=== PATIENT | female | born 1965 | race Caucasian/White ===

== ENCOUNTER 2017-05-08 09:47 | Emergency (ER) | payer OTHER ==
[2017-05-08 09:54] VITALS: BP 112/85; PULSE 118; RESP 24; TEMP 98.6; O2SAT 99
--- NOTE | 2017-05-08 10:15 | EDPHY ---
H & P Time Seen by Provider: 05/08/17 10:03 HPI/ROS: CHIEF COMPLAINT: Right ankle pain HISTORY OF PRESENT ILLNESS: 51-year-old female arrives via private vehicle complaining of acute right ankle pain after she was standing on an inclined surface, rolled her ankle. She is unable to bear weight. Occurred shortly prior to arrival. No paresthesia. No fall from height. No foot or calcaneus pain. No proximal tibia or fibula or fibular head pain or injury. No knee pain. PRIMARY CARE PROVIDER: REVIEW OF SYSTEMS: A ten point review of systems was performed and is negative with the exception of the items mentioned in the HPI PHYSICAL EXAM (Prior to examination, patient consented to physical exam, hands were washed and my usual and customary physical exam procedures followed) 1) GENERAL: Well-developed, well-nourished, alert and oriented. Appears uncomfortable. 2) HEAD: Normocephalic 3) HEENT: Pupils equal, round, reactive to light bilaterally. 4) LUNGS: Breathing comfortably. 5) MUSCULOSKELETAL: Tender to palpation medial and lateral malleoli with soft tissue swelling noted. proximal tibia and fibula nontender .5th MT nontender negative Murillo test, compartments soft 6) SKIN: Intact 7) VASCULAR: DP,PT pulses and cap refill present and brisk DIFFERENTIAL DIAGNOSIS: in no particular order including but not limited to fracture, sprain, compartment syndrome Procedure: Crutches indications for crutch use discussed with patient. Patient fitted for crutches by ER staff. Observed ambulating with crutches. I think the patient has the capacity to safely use crutches. Usual and customary crutch walking precautions provided Procedure: Splint A Junction boot splint was applied by ER orthodontic technician assistant. After application of the splint I returned and re-examined the patient. The splint was adequately immobilizing the joint and distal to the splint the patient's circulation and sensation were intact. Patient shows no signs of compartment syndrome. Was given orthopedic precautions. Smoking Status: Never smoked Constitutional: Initial Vital Signs Temperature (C) 37.0 C 05/08/17 09:52 Heart Rate 118 H 05/08/17 09:52 Respiratory Rate 24 H 05/08/17 09:52 Blood Pressure 112/85 H 05/08/17 09:52 O2 Sat (%) 99 05/08/17 09:52 O2 Delivery Mode Room Air Allergies/Adverse Reactions: penicillin V potassium [From [facility]] Allergy (Mild, Verified 09/16/12 18:04) Hives Home Medications: Medication Instructions Recorded Hydrocodone/APAP 5/325 [Dulzura 1 tab PO Q6 PRN #7 tab 05/08/17 5/325 (RX)] MDM/Departure - [facility] ED Course/Re-evaluation: Care of patient under supervision of secondary supervising physician Dr Mamadou Restrepo . Patient is neurovascular intact. Re-evaluation with serial examinations. No evidence of compartment syndrome. - Depart Disposition: Home, Routine, Self-Care Clinical Impression: Right ankle sprain Qualifiers: Encounter type: initial encounter Involved ligament of ankle: unspecified ligament Qualified Code(s): S93.401A - Sprain of unspecified ligament of right ankle, initial encounter Condition: Good Instructions: Ankle Sprain (ED) Additional Instructions: Return to the ER immediately if you experience discoloration, have worsening pain, numbness, tingling, or any other symptoms that concern you. If you received x-rays in the emergency department today, be advised, that ligamentous , tendon, muscular, and other non-bony injury cannot be fully ruled out. Try to keep your affected extremity elevated above the level of your chest, and keep cold packs on the affected area, for the next 48 hours. Prescriptions: Hydrocodone/APAP 5/325 [Dulzura 5/325 (RX)] 1 tab PO Q6 PRN #7 tab PRN Reason: Pain, Severe Referrals: Anthony Augustin MD [Medical Doctor] - 2-3 days, call for appt.
== END 2017-05-08 11:00 | disposition home or self-care (01) ==
DX: S93.401A Sprain of unspecified ligament of right ankle, initial encounter (principal); X58.XXXA Exposure to other specified factors, initial encounter
CPT/HCPCS: L4386

== ENCOUNTER → 2018-03-07 | Outpatient (CLI) | payer OTHER | LOC: FIMAGING 12:21 | PROVIDERS: ATTEND Physician Assistant | DX: Z12.31 Encounter for screening mammogram for malignant neoplasm of breast (principal); Z13.820 Encounter for screening for osteoporosis; Z78.0 Asymptomatic menopausal state ==